=== PATIENT | female | born 1955 | race Caucasian/White ===

== ENCOUNTER 2023-08-17 10:15 | Outpatient (RCR) | payer MEDICARE, SELFPAY ==
--- NOTE | 2023-08-17 11:53 | PTOPEVAL1 ---
Assessment and note entered by Eulalio Paul Evaluation Information Assessment Status Evaluation Diagnosis neck pain Onset 05/25/23 Subjective Information Pt. reports that her neck pain began around the beginning of the year. She reports that she was driving and turned her head to the left to look for traffic and noticed immediate pain. She describes pain in the area of the left shoulder blade and into the left cervical spine. She reports she has had x-ray and MRI, and already received an injection, but has little pain relief. She reports that pain is intense. She states that nothing seems to be able to bring her relief, including medication. She reports pain is most notable with turning her head, especially while driving. She reports no trouble with sleeping. She reports that her goal for therapy is to reduce her neck pain. Reported Pain Level Pain Score 6: Self Report Assessment PT Clinical Summary Pt. is a 67 year old female who enters the clinic with neck pain. She presents with with impaired postural awareness, impaired cervical spine mobility, pain and generalized proximal u.e. weakness. Continued skilled PT is indicated in order to improve these areas to allow the pt. to be able to complete all IADL's with improved comfort and efficiency. Plan of Care Interventions Electrical Stimulation,Hot Pack/Cold Pack,Manual Therapy,Mechanical Traction,Neuro Re-education, Patient/Caregiver Educati,Therapeutic Activities, Therapeutic Exercise Treatment Frequency and 2x/week x 10 visits Duration These treatments will address the objective and functional deficits as defined above. The patient will be advanced safely and appropriately in order for the patient to progress towards his/her prior level of function. Additional exercises will be introduced and as well as a comprehensive home exercise program upon discharge, if needed, ?to ensure carryover of functional gains achieved in the clinic. This treatment plan has been reviewed and agreement upon by the patient.
--- NOTE | 2023-08-17 11:54 | OPREHPOC ---
Outpatient Therapy Plan of Care This is a Multidisciplinary Plan of Care that may contain components documented by all disciplines (PT, OT, and ST.) PT Problem 1 PT Problem #1 Knowledge Deficit PT Goal 1 Goal Pt. will be independent with a HEP addressing ROM and postural awareness Target Visit 2 PT Problem 2 PT Problem #2 Impaired Range of Motion PT Goal 1 Goal Pt. will demonstrate 60 degrees or greater of bilateral c-spine rotation active ROM in order to improve visual field with driving. Target Visit 10 PT Problem 3 PT Problem #3 Impaired Functional Mobil PT Goal 1 Goal Pt. will have less than 10% limitation on the NDI indicating overall improve function. Target Visit 10 PT Problem 4 PT Problem #4 Pain PT Goal 1 Goal Pt. will report pain level at 5/10 at worst with all ADL's.
--- NOTE | 2023-09-17 13:12 | OPREHPOC ---
Outpatient Therapy Plan of Care This is a Multidisciplinary Plan of Care that may contain components documented by all disciplines (PT, OT, and ST.) PT Problem 1 PT Problem #1 Knowledge Deficit PT Goal 1 Goal Pt. will be independent with a HEP addressing ROM and postural awareness Target Visit 2 Progress Met PT Problem 2 PT Problem #2 Impaired Range of Motion PT Goal 1 Goal Pt. will demonstrate 60 degrees or greater of bilateral c-spine rotation active ROM in order to improve visual field with driving. Target Visit 10 Progress Not Met PT Problem 3 PT Problem #3 Impaired Functional Mobil PT Goal 1 Goal Pt. will have less than 10% limitation on the NDI indicating overall improve function. Target Visit 10 Progress Not Met PT Problem 4 PT Problem #4 Pain PT Goal 1 Goal Pt. will report pain level at 5/10 at worst with all ADL's. Progress Not Met
--- NOTE | 2023-09-17 13:12 | PTOPDC ---
Assessment and note entered by Sabrina Macias DPT Evaluation Information Assessment Status Discharge Diagnosis neck pain Onset 05/25/23 Subjective Information patient reports less pain since start of PT. she reports intensity of pain is less. she reports at times she has improved mobility of the neck. she reports she still has trouble turning her head when driving but has noticed it is improving. she reports compliance with HEP Reported Pain Level Pain Score 4: Self Report Assessment PT Clinical Summary Mrs. Cerrato has been seen for 10 visits of skilled PT. Patient made progress towards goals but did not meet goals. She did meet goal for independence with HEP and reports decrease in overall pain levels and some improvement in ROM. Pain continues to persist at the medial L scapular border. She continues to lack full cervical ROM and has difficulty with looking over her shoulder to drive . Patient will return to [facility] and would benefit from further imaging to determine next steps in care. At this time, patient would like to continue with HEP and be discharged from skilled PT. Plan of Care PT Services Indicated No
== END 2023-09-17 13:23 | disposition home or self-care (01) ==
LOC: CHSPT 10:15
DX: M54.2 Cervicalgia (principal)
CPT/HCPCS: 97014; 97110; 97140; 97161; G0283